=== PATIENT | male | born 1950 | race Two or more races ===

== ENCOUNTER 2022-06-22 09:16 | Emergency (ER) | payer OTHER ==
[~2022-06-22] VITALS: Ht 172.7 cm; Wt 81.6 kg
== END 2022-06-22 13:07 | disposition home or self-care (01) ==
LOC: ER 09:16
DX: J45.901 Unspecified asthma with (acute) exacerbation (principal); E11.65 Type 2 diabetes mellitus with hyperglycemia; Z79.4 Long term (current) use of insulin; I10 Essential (primary) hypertension; F41.9 Anxiety disorder, unspecified; Z98.890 Other specified postprocedural states; Z20.822 Contact with and (suspected) exposure to COVID-19